=== PATIENT | male | born 1960 | race Caucasian/White ===

== ENCOUNTER 2020-03-14 09:50 | Emergency (ER) | payer MEDICARE ==
[~2020-03-14] VITALS: Ht 172.7 cm; Wt 109.1 kg
[2020-03-14] MEDS ORDERED: TENORMIN 2525 MG/TAB PO (10:16)
[2020-03-14] MEDS ORDERED: ZESTRIL 10MG10 MG PO (10:17)
[2020-03-14] MEDS ORDERED: ULTRAM 50MG TAB50 MG PO (10:17)
[2020-03-14] MEDS ORDERED: ZYLOPRIM 300MG300 MG PO (10:18)
[2020-03-14 10:32] LABS: BASO # 0.1 (0.0-0.2); BASO % 0.5 % (0.0-2.0); EOS # 0.3 (0.0-0.7); EOS % 3.3 % (0-4.0); GRAN # 7.3 (1.4-6.5); GRAN % 73.4 % (42.2-75.2); HEMATOCRIT 49.7 % (42.0-52.0); HEMOGLOBIN 17.2 g/dl (13.5-18.0); LYMPH # 1.7 (1.2-3.4); LYMPH % 16.6 % (20.0-51.0); MEAN CELL VOLUME 85 fl (80.0-100.0); MEAN CORPUSCULAR HEMOGLOBIN 30 pg (27.0-31.0); MEAN CORPUSCULAR HGB CONC 35 g/dl (33.0-37.0); MEAN PLATELET VOLUME 9.7 fl (7.4-10.4); MONO # 0.6 (0.1-0.6); PLATELET COUNT 162 K/mm3 (130-400); RED BLOOD COUNT 5.82 M/mm3 (4.20-5.60); REDCELL DISTRIBUTION WIDTH-CV 13.2 % (11.5-14.5)
[2020-03-14 10:47] LABS: ALBUMIN 4.7 gm/dL (3.5-5.0); BILIRUBIN,TOTAL 1.5 mg/dL (0.0-1.0); CALCIUM 9.7 mg/dL (8.4-10.2); CREATININE, serum 1.01 (0.66-1.25)
[2020-03-14 15:45] VITALS: TEMP 98.7
[2020-03-14 16:11] VITALS: BP 156/99; PULSE 83
== END 2020-03-14 16:21 | disposition home or self-care (01) ==
LOC: COL.ER 09:50
PROVIDERS: Family Medicine
DX: T18.128A Food in esophagus causing other injury, initial encounter (principal); I10 Essential (primary) hypertension; I48.91 Unspecified atrial fibrillation; Z88.0 Allergy status to penicillin; X58.XXXA Exposure to other specified factors, initial encounter
CPT/HCPCS: J0330; J2704; J3010; J7120